=== PATIENT | female | born 1965 | race African-American/Black ===

== ENCOUNTER 2016-08-02 12:43 | Emergency (ER) | payer OTHER ==
--- NOTE | 2016-08-02 13:30 | ER Document Report ---
ED Medical Screen (RME) - General Chief Complaint: Abdominal Pain Stated Complaint: ABDOMINAL PAIN Mode of Arrival: Ambulatory Information source: Patient TRAVEL OUTSIDE OF THE U.S. IN LAST 30 DAYS: No - HPI Onset: Other - 2 DAYS Onset/Duration: Intermittent Quality of pain: Cramping Severity: Mild Associated Symptoms: Nausea. denies: Chills, Fever Exacerbated by: Denies Relieved by: Denies Similar symptoms previously: No Recently seen / treated by doctor: No - Related Data Allergies/Adverse Reactions: Penicillins Allergy (Unknown, Verified 08/02/16 12:52) Past Medical History - General Information source: Patient - Social History Frequency of alcohol use: None - Past Medical History Cardiac Medical History: Reports: Hx Hypercholesterolemia Denies: Hx Coronary Artery Disease Neurological Medical History: Denies: Hx Cerebrovascular Accident Endocrine Medical History: Denies: Hx Diabetes Mellitus Type 1, Hx Diabetes Mellitus Type 2 Renal/ Medical History: Denies: Hx Peritoneal Dialysis GI Medical History: Reports: Hx Gastroesophageal Reflux Disease Musculoskeltal Medical History: Reports Hx Arthritis Psychiatric Medical History: Reports: Hx Depression - anxiety Past Surgical History: Reports: Hx Hysterectomy, Hx Tubal Ligation Review of Systems - Review of Systems Constitutional: No symptoms reported EENT: No symptoms reported Cardiovascular: No symptoms reported Respiratory: No symptoms reported Gastrointestinal: See HPI Physical Exam - Vital signs Vitals: Temp Pulse Resp BP Pulse Ox 98.4 F 78 12 136/88 H 96 08/02/16 12:47 08/02/16 12:47 08/02/16 12:47 08/02/16 12:47 08/02/16 12:47 Interpretation: Normal - General General appearance: Appears well, Alert In distress: None Course - Vital Signs Vital signs: Temp Pulse Resp BP Pulse Ox 98.4 F 78 12 136/88 H 96 08/02/16 12:47 08/02/16 12:47 08/02/16 12:47 08/02/16 12:47 08/02/16 12:47
[2016-08-02 13:38] LABS: ABSOLUTE LYMPHOCYTES (AUTO) 2.7 10^3/uL (0.5-4.7); ABSOLUTE MONOCYTES (AUTO) 0.6 10^3/uL (0.1-1.4); ABSOLUTE NEUT (AUTO) 4.9 10^3/uL (1.7-8.2); BASOPHILS % (AUTO) 0.3 % (0-2); EOSINOPHILS % (AUTO) 0.3 % (0-6); HEMATOCRIT 42.1 % (36.0-47.0); HEMOGLOBIN 14.1 g/dL (12.0-15.5); HGB HCT DIFFERENCE 0.2; LYMPHOCYTES % (AUTO) 32.7 % (13-45); MEAN CORPUSCULAR HEMOGLOBIN 30.4 pg (27.0-33.4); MEAN CORPUSCULAR HGB CONC 33.6 g/dL (32.0-36.0); MEAN CORPUSCULAR VOLUME 91 fl (80-97); MONOCYTES % (AUTO) 7.5 % (3-13); RED BLOOD COUNT 4.64 10^6/uL (3.72-5.28); SEGMENTED NEUTROPHILS % (AUTO) 59.2 % (42-78); WHITE BLOOD COUNT 8.3 10^3/uL (4.0-10.5)
[2016-08-02 14:14] LABS: ALANINE AMINOTRANSFERASE 24 U/L (9-52); ALBUMIN 4.8 g/dL (3.5-5.0); ALKALINE PHOSPHATASE 57 U/L (38-126); ANION GAP 15 (5-19); ASPARTATE AMINO TRANSFERASE 21 U/L (14-36); BILIRUBIN,DIRECT 0.4 mg/dL (0.0-0.4); BILIRUBIN,TOTAL 0.9 mg/dL (0.2-1.3); BLOOD UREA NITROGEN 21 mg/dL (7-20); CALCIUM 10.7 mg/dL (8.4-10.2); CARBON DIOXIDE 31 mmol/L (22-30); CHLORIDE 101 mmol/L (98-107); CREATINE KINASE 85 U/L (30-135); CREATININE RESULT 1.06 mg/dL (0.52-1.25); GLUCOSE 94 mg/dL (75-110); LIPASE 37.3 U/L (23-300); POTASSIUM 4.1 mmol/L (3.6-5.0); SODIUM 146.6 mmol/L (137-145); TOTAL PROTEIN 7.9 g/dL (6.3-8.2)
[2016-08-02 14:25] LABS: CREATINE KINASE MB 0.29 ng/mL (<4.55)
[2016-08-02 14:26] LABS: TROPONIN I < 0.012 ng/mL
[2016-08-02 14:45] LABS: APPEARANCE,URINE TURBID; BILIRUBIN,URINE NEGATIVE (NEGATIVE); GLUCOSE, URINE NEGATIVE (NEGATIVE); KETONES,URINE NEGATIVE (NEGATIVE); LEUKOCYTE ESTERASE,URINE NEGATIVE (NEGATIVE); NITRITE,URINE NEGATIVE (NEGATIVE); PROTEIN,URINE NEGATIVE (NEGATIVE); URINE SPECIFIC GRAVITY 1.027; UROBILINOGEN,URINE NEGATIVE mg/dL (<2.0)
--- NOTE | 2016-08-02 15:38 | ER Document Report ---
ED General - General Chief Complaint: Abdominal Pain Stated Complaint: ABDOMINAL PAIN Mode of Arrival: Ambulatory Information source: Patient Notes: 51-year-old female presents with abdominal pain of 4 day duration. Patient denies any fevers or chills admits to mild nausea Patient notes he was epigastric and has bilateral flanks at this time TRAVEL OUTSIDE OF THE U.S. IN LAST 30 DAYS: No - HPI Onset: Other Onset/Duration: Persistent Quality of pain: Achy Severity: Mild Pain Level: 1 Associated symptoms: Nausea Exacerbated by: Denies Relieved by: Denies Similar symptoms previously: No Recently seen / treated by doctor: No - Related Data Allergies/Adverse Reactions: Penicillins Allergy (Unknown, Verified 08/02/16 12:52) Past Medical History - General Information source: Patient - Social History Smoking Status: Current Every Day Smoker Cigarette use (# per day): Yes Chew tobacco use (# tins/day): No Smoking Education Provided: No Frequency of alcohol use: None Drug Abuse: None Family History: Reviewed & Not Pertinent Patient has suicidal ideation: No Patient has homicidal ideation: No - Past Medical History Cardiac Medical History: Reports: Hx Hypercholesterolemia Denies: Hx Coronary Artery Disease Neurological Medical History: Denies: Hx Cerebrovascular Accident Endocrine Medical History: Denies: Hx Diabetes Mellitus Type 1, Hx Diabetes Mellitus Type 2 Renal/ Medical History: Denies: Hx Peritoneal Dialysis GI Medical History: Reports: Hx Gastroesophageal Reflux Disease Musculoskeltal Medical History: Reports Hx Arthritis Psychiatric Medical History: Reports: Hx Depression - anxiety Past Surgical History: Reports: Hx Hysterectomy, Hx Tubal Ligation - Immunizations Hx Diphtheria, Pertussis, Tetanus Vaccination: No Review of Systems - Review of Systems Notes: REVIEW OF SYSTEMS: CONSTITUTIONAL : Denies fever, chills, or sweats. Denies recent illness. EENT: Denies eye, ear, throat, or mouth pain or symptoms. Denies nasal or sinus congestion or discharge. Denies throat, tongue, or mouth swelling or difficulty swallowing. CARDIOVASCULAR: Denies chest pain. Denies palpitations or racing or irregular heart beat. Denies ankle edema. RESPIRATORY: Denies cough, cold, or chest congestion. Denies shortness of breath, difficulty breathing, or wheezing. GASTROINTESTINAL: Admits to nausea vomiting. GENITOURINARY: Denies difficulty urinating, painful urination, burning, frequency, blood in urine, or discharge. FEMALE GENITOURINARY: Denies vaginal bleeding, heavy or abnormal periods, irregular periods. Denies vaginal discharge or odor. MUSCULOSKELETAL: Denies back or neck pain or stiffness. Denies joint pain or swelling. SKIN: Denies rash, lesions or sores. HEMATOLOGIC : Denies easy bruising or bleeding. LYMPHATIC: Denies swollen, enlarged glands. NEUROLOGICAL: Denies confusion or altered mental status. Denies passing out or loss of consciousness. Denies dizziness or lightheadedness. Denies headache. Denies weakness or paralysis or loss of use of either side. Denies problems with gait or speech. Denies sensory loss, numbness, or tingling. Denies seizures. PSYCHIATRIC: Denies anxiety or stress. Denies depression, suicidal ideation, or homicidal ideation. ALL OTHER SYSTEMS REVIEWED AND NEGATIVE. Dictation was performed using [email or web address] voice recognition software PHYSICAL EXAMINATION: GENERAL: Well-appearing, well-nourished and in no acute distress. HEAD: Atraumatic, normocephalic. EYES: Pupils equal round and reactive to light, extraocular movements intact, conjunctiva are normal. ENT: Nares patent, oropharynx clear without exudates. Moist mucous membranes. NECK: Normal range of motion, supple without lymphadenopathy LUNGS: Breath sounds clear to auscultation bilaterally and equal. No wheezes rales or rhonchi. HEART: Regular rate and rhythm without murmurs ABDOMEN: Soft, mild tenderness epigastric bilateral flanks Female : deferred Musculoskeletal: Normal range of motion, no pitting or edema. No cyanosis. NEUROLOGICAL: Cranial nerves grossly intact. Normal speech, normal gait. Normal sensory, motor exams PSYCH: Normal mood, normal affect. SKIN: Warm, Dry, normal turgor, no rashes or lesions noted. Physical Exam - Vital signs Vitals: Temp Pulse Resp BP Pulse Ox 98.4 F 78 12 136/88 H 96 08/02/16 12:47 08/02/16 12:47 08/02/16 12:47 08/02/16 12:47 08/02/16 12:47 Course - Re-evaluation Re-evalutation: 08/02/16 15:38 Lab work notes no significant abnormality, patient is in no significant distress refuses any pain medication 08/02/16 16:29 CT was performed which noted no acute abnormality, I believe patient stable for discharge she states she believes this is gas related pain After performing a Medical Screening Examination, I estimate there is LOW risk for ACUTE APPENDICITIS, BOWEL OBSTRUCTION, ACUTE CHOLECYSTITIS, PERFORATED DIVERTICULITIS, INCARCERATED HERNIA, PANCREATITIS, PELVIC INFLAMMATORY DISEASE, PERFORATED ULCER, ECTOPIC , or TUBO-OVARIAN ABSCESS, thus I consider the discharge disposition reasonable. Also, there is no evidence or peritonitis , sepsis, or toxicity. I have reevaluated this patient multiple times and no significant life threatening changes are noted. The patient and I have discussed the diagnosis and risks, and we agree with discharging home with close follow-up with the understanding that symptoms and presentations can change. We also discussed returning to the Emergency Department immediately if new or worsening symptoms occur. We have discussed the symptoms which are most concerning (e.g., bloody stool, fever, changing or worsening pain, vomiting) that necessitate immediate return. - Vital Signs Vital signs: Temp Pulse Resp BP Pulse Ox 98.4 F 78 12 136/88 H 96 08/02/16 12:47 08/02/16 12:47 08/02/16 12:47 08/02/16 12:47 08/02/16 12:47 - Laboratory Result Diagrams: 08/02/16 13:20 08/02/16 13:20 Laboratory results interpreted by me: 08/02/16 08/02/16 13:20 13:20 Sodium 146.6 H Carbon Dioxide 31 H BUN 21 H Est GFR (Non-Af Amer) 54 L Calcium 10.7 H Urine Blood SMALL H Discharge - Discharge Clinical Impression: Abdominal pain Qualifiers: Abdominal location: generalized Qualified Code(s): R10.84 - Generalized abdominal pain Condition: Stable Disposition: HOME, SELF-CARE Instructions: Abdominal Pain ([facility]) Additional Instructions: Follow up with your physician tomorrow for further care or return to the ED IMMEDIATELY if symptoms worsen or new concerns occur. If you cannot afford to follow up with your primary care physician a list of low cost clinics have been provided at the end of your discharge papers as well. Prescriptions: Dicyclomine HCl [Bentyl 20 mg Tablet] 20 mg PO QID #40 tablet Simethicone [Gas-X] 125 mg PO Q8 #20 tab.chew
[2016-08-02 17:01] VITALS: BP 132/63
--- NOTE | 2016-08-02 22:54 | EKG REPORT ---
SEVERITY:- OTHERWISE NORMAL ECG - SINUS RHYTHM LEFT AXIS DEVIATION : Confirmed by: Kelsie Brandt 02-Aug-2016 22:53:21
== END 2016-08-02 16:58 | disposition home or self-care (01) ==
LOC: ER 12:43
DX: R10.84 Generalized abdominal pain (principal); F17.210 Nicotine dependence, cigarettes, uncomplicated; E78.00 Pure hypercholesterolemia, unspecified; Z90.710 Acquired absence of both cervix and uterus
CPT/HCPCS: 36415; 76380; 76705; 80053; 81001; 82550; 82553; 83690; 84484; 85025; 93005; 93010; 99284

== ENCOUNTER 2016-08-20 13:50 | Emergency (ER) | payer OTHER ==
--- NOTE | 2016-08-20 15:44 | ER Document Report ---
ED Medical Screen (RME) - General Chief Complaint: Abdominal Pain Stated Complaint: ABDOMINAL PAIN Time Seen by Provider: 08/20/16 15:15 Notes: Is here because she says that she went to the [place] and [place] yesterday and had an ultrasound of her gallbladder that show she has gallstones. She says that she was here in this facility a week or 2 ago and had an ultrasound and told that there were no stones present. She says the pain starts in the epigastrium and goes to the right. She is not having any vomiting, but is having some diarrhea. Has not noted a fever although she has some chills. Patient had a hysterectomy and a tubal ligation. TRAVEL OUTSIDE OF THE U.S. IN LAST 30 DAYS: No - Related Data Allergies/Adverse Reactions: Penicillins Allergy (Unknown, Verified 08/20/16 13:59) Past Medical History - Past Medical History Cardiac Medical History: Reports: Hx Hypercholesterolemia Denies: Hx Coronary Artery Disease Neurological Medical History: Denies: Hx Cerebrovascular Accident Endocrine Medical History: Denies: Hx Diabetes Mellitus Type 1, Hx Diabetes Mellitus Type 2 Renal/ Medical History: Denies: Hx Peritoneal Dialysis GI Medical History: Reports: Hx Gastroesophageal Reflux Disease Musculoskeltal Medical History: Reports Hx Arthritis Psychiatric Medical History: Reports: Hx Depression - anxiety Past Surgical History: Reports: Hx Hysterectomy, Hx Tubal Ligation - Immunizations Hx Diphtheria, Pertussis, Tetanus Vaccination: No Physical Exam - Vital signs Vitals: Temp Pulse Resp BP Pulse Ox 97.8 F 79 18 131/78 H 97 08/20/16 13:59 08/20/16 13:59 08/20/16 13:59 08/20/16 13:59 08/20/16 13:59 Course - Vital Signs Vital signs: Temp Pulse Resp BP Pulse Ox 97.8 F 79 18 131/78 H 97 08/20/16 13:59 08/20/16 13:59 08/20/16 13:59 08/20/16 13:59 08/20/16 13:59
[2016-08-20 15:51] LABS: ABSOLUTE EOSINOPHILS # (AUTO) 0.1 10^3/uL (0.0-0.6); ABSOLUTE LYMPHOCYTES (AUTO) 2.2 10^3/uL (0.5-4.7); ABSOLUTE MONOCYTES (AUTO) 0.5 10^3/uL (0.1-1.4); ABSOLUTE NEUT (AUTO) 3.6 10^3/uL (1.7-8.2); BASOPHILS % (AUTO) 0.5 % (0-2); HEMATOCRIT 43.3 % (36.0-47.0); HEMOGLOBIN 14.4 g/dL (12.0-15.5); HGB HCT DIFFERENCE -0.1; LYMPHOCYTES % (AUTO) 34.8 % (13-45); MEAN CORPUSCULAR HEMOGLOBIN 30.5 pg (27.0-33.4); MEAN CORPUSCULAR HGB CONC 33.2 g/dL (32.0-36.0); MEAN CORPUSCULAR VOLUME 92 fl (80-97); MONOCYTES % (AUTO) 7.4 % (3-13); RED BLOOD COUNT 4.71 10^6/uL (3.72-5.28); RED CELL DISTRIBUTION WIDTH 13.2 % (11.5-14.0); SEGMENTED NEUTROPHILS % (AUTO) 56.3 % (42-78); WHITE BLOOD COUNT 6.3 10^3/uL (4.0-10.5)
[2016-08-20] MEDS ORDERED: ONDANSETRON 4 MG TAB.RAPDIS PO ONE (16:01)
[2016-08-20] MEDS ORDERED: MAG HYDROX/AL HYDROX/SIMETH SUSP 30 ML UDCUP PO ONE (16:01)
[2016-08-20] MEDS ORDERED: LIDOCAINE 2% VISCOUS SOLN 20 ML UDCUP PO ONE (16:01)
[2016-08-20] MEDS ORDERED: SUCRALFATE SUSP 1 GM/10 ML UDCUP PO ONE (16:02)
--- NOTE | 2016-08-20 16:08 | ER Document Report ---
ED General - General Chief Complaint: Abdominal Pain Stated Complaint: ABDOMINAL PAIN Time Seen by Provider: 08/20/16 15:15 Mode of Arrival: Ambulatory TRAVEL OUTSIDE OF THE [place].S. IN LAST 30 DAYS: No - HPI Notes: Patient is a pleasant 51-year-old black female presents emergency department with report of midepigastric predominant pain she has had for greater than a month. The patient reports having nausea in the morning with occasional vomiting, last vomiting was yesterday. The patient reports a slightly loose bowel movement today. She denies any recent medication changes, but reports she has been on naproxen twice a day for over a year. No fever cough or chest pain. Patient has chronic lower back pain states she had a MRI done earlier in the year that showed a herniated disc and an ultrasound yesterday which did show gallstones but did not show ductal dilatation or pericholecystic fluid or other inflammatory changes. Fatty liver was noted. Ultrasound was performed at the [place] in [place]. Past medical history tubal ligation chronic back pain hysterectomy vertigo Medications Gas-X Zofran and Bentyl Antivert omeprazole thyroid replacement and naproxen. - Related Data Allergies/Adverse Reactions: Penicillins Allergy (Unknown, Verified 08/20/16 13:59) Past Medical History - General Information source: Patient - Social History Smoking Status: Never Smoker Frequency of alcohol use: None Drug Abuse: None Lives with: Family Family History: Reviewed & Not Pertinent Patient has suicidal ideation: No Patient has homicidal ideation: No - Past Medical History Cardiac Medical History: Reports: Hx Hypercholesterolemia Denies: Hx Coronary Artery Disease Neurological Medical History: Denies: Hx Cerebrovascular Accident Endocrine Medical History: Denies: Hx Diabetes Mellitus Type 1, Hx Diabetes Mellitus Type 2 Renal/ Medical History: Denies: Hx Peritoneal Dialysis GI Medical History: Reports: Hx Gastroesophageal Reflux Disease Musculoskeltal Medical History: Reports Hx Arthritis Psychiatric Medical History: Reports: Hx Depression - anxiety Past Surgical History: Reports: Hx Hysterectomy, Hx Tubal Ligation - Immunizations Hx Diphtheria, Pertussis, Tetanus Vaccination: No Review of Systems - Review of Systems Notes: REVIEW OF SYSTEMS: CONSTITUTIONAL : Denies fever, chills, or sweats. Denies recent illness. EENT: Denies eye, ear, throat, or mouth pain or symptoms. Denies nasal or sinus congestion or discharge. Denies throat, tongue, or mouth swelling or difficulty swallowing. CARDIOVASCULAR: Denies chest pain. Denies palpitations or racing or irregular heart beat. Denies ankle edema. RESPIRATORY: Denies cough, cold, or chest congestion. Denies shortness of breath, difficulty breathing, or wheezing. GASTROINTESTINAL: Denies distention. Denies blood in vomitus, stools, or per rectum. Denies black, tarry stools. Denies constipation. GENITOURINARY: Denies difficulty urinating, painful urination, burning, frequency, blood in urine, or discharge. FEMALE GENITOURINARY: Denies vaginal bleeding, heavy or abnormal periods, irregular periods. Denies vaginal discharge or odor. MUSCULOSKELETAL: Denies neck pain or stiffness. Denies joint pain or swelling. SKIN: Denies rash, lesions or sores. HEMATOLOGIC : Denies easy bruising or bleeding. LYMPHATIC: Denies swollen, enlarged glands. NEUROLOGICAL: Denies confusion or altered mental status. Denies passing out or loss of consciousness. Denies dizziness or lightheadedness. Denies headache. Denies weakness or paralysis or loss of use of either side. Denies problems with gait or speech. Denies sensory loss, numbness, or tingling. Denies seizures. PSYCHIATRIC: Denies anxiety or stress. Denies depression, suicidal ideation, or homicidal ideation. ALL OTHER SYSTEMS REVIEWED AND NEGATIVE. Dictation was performed using [employer] voice recognition software Physical Exam - Vital signs Vitals: Temp Pulse Resp BP Pulse Ox 97.8 F 79 18 131/78 H 97 08/20/16 13:59 08/20/16 13:59 08/20/16 13:59 08/20/16 13:59 08/20/16 13:59 - Notes Notes: PHYSICAL EXAMINATION: GENERAL: Well-appearing, well-nourished and in no acute distress. HEAD: Atraumatic, normocephalic. EYES: Pupils equal round and reactive to light, extraocular movements intact, conjunctiva are normal. ENT: Nares patent, oropharynx clear without exudates. Moist mucous membranes. NECK: Normal range of motion, supple without lymphadenopathy LUNGS: Breath sounds clear to auscultation bilaterally and equal. No wheezes rales or rhonchi. HEART: Regular rate and rhythm without murmurs ABDOMEN: Soft, nondistended abdomen. No guarding, no rebound. No masses appreciated. Tender through bilateral upper quadrants and midepigastric region. Mildly positive Leonardo's. No obvious hepatosplenomegaly. Female : deferred Musculoskeletal: Normal range of motion, no pitting or edema. No cyanosis. Patient has diffuse paraspinal lower and mid back pain which she states is chronic. There is no crepitance or bony deformity. NEUROLOGICAL: Cranial nerves grossly intact. Normal speech, normal gait. Normal sensory, motor exams. No saddle anesthesia. No report of incontinence. PSYCH: Normal mood, normal affect. SKIN: Warm, Dry, normal turgor, no rashes or lesions noted. Course - Re-evaluation Re-evalutation: 08/20/16 16:09 Patient was given Zofran, Carafate, Maalox and lidocaine by mouth. 08/20/16 17:12 The patient had adequate relief of discomfort after medications and felt stable for discharge. No evidence for acute cholecystitis by lab criteria. No evidence for pancreatitis or GI bleed or urinary tract infection. Findings bit more so with a gastritis and will Have the patient stop the naproxen and will start her on Zofran and Carafate and back on tramadol. - Vital Signs Vital signs: Temp Pulse Resp BP Pulse Ox 97.8 F 79 18 131/78 H 97 08/20/16 13:59 08/20/16 13:59 08/20/16 13:59 08/20/16 13:59 08/20/16 13:59 - Laboratory Result Diagrams: 08/20/16 15:30 08/20/16 15:30 Laboratory results interpreted by me: 08/20/16 08/20/16 15:30 15:30 Carbon Dioxide 31 H BUN 21 H Calcium 10.4 H Direct Bilirubin 0.5 H Urine Urobilinogen 2.0 H Urine Ascorbic Acid 40 H Discharge - Discharge Clinical Impression: Gallstones Gastritis Qualifiers: Gastritis type: unspecified gastritis Chronicity: acute Gastritis bleeding: without bleeding Qualified Code(s): K29.00 - Acute gastritis without bleeding Condition: Stable Disposition: HOME, SELF-CARE Instructions: Gastritis ([facility]), Gallbladder Disease ([facility]) Additional Instructions: Stop taking naproxen. If abdominal pain continues, then you may need an upper endoscopy. If you develop right upper quadrant pain or fever, then return to evaluate the gallbladder further. Prescriptions: Tramadol HCl 50 mg PO Q4HP PRN #30 tablet PRN Reason: Ondansetron [Zofran Odt 4 mg Tablet] 1 tab PO Q8HP PRN #10 tab.rapdis PRN Reason: For Nausea/Vomiting Sucralfate [Carafate 1 gm Tablet] 1 gm PO ACHS #120 tablet
[2016-08-20 16:18] LABS: ALANINE AMINOTRANSFERASE 25 U/L (9-52); ALBUMIN 4.4 g/dL (3.5-5.0); ALKALINE PHOSPHATASE 63 U/L (38-126); ANION GAP 9 (5-19); ASPARTATE AMINO TRANSFERASE 24 U/L (14-36); BILIRUBIN,DIRECT 0.5 mg/dL (0.0-0.4); BILIRUBIN,TOTAL 0.8 mg/dL (0.2-1.3); BLOOD UREA NITROGEN 21 mg/dL (7-20); CALCIUM 10.4 mg/dL (8.4-10.2); CARBON DIOXIDE 31 mmol/L (22-30); CHLORIDE 104 mmol/L (98-107); CREATININE RESULT 0.96 mg/dL (0.52-1.25); GLUCOSE 90 mg/dL (75-110); LIPASE 47.9 U/L (23-300); POTASSIUM 4.5 mmol/L (3.6-5.0); TOTAL PROTEIN 7.4 g/dL (6.3-8.2)
[2016-08-20 16:42] LABS: APPEARANCE,URINE TURBID; BILIRUBIN,URINE NEGATIVE (NEGATIVE); GLUCOSE, URINE NEGATIVE (NEGATIVE); KETONES,URINE NEGATIVE (NEGATIVE); LEUKOCYTE ESTERASE,URINE NEGATIVE (NEGATIVE); NITRITE,URINE NEGATIVE (NEGATIVE); PROTEIN,URINE NEGATIVE (NEGATIVE); URINE SPECIFIC GRAVITY 1.029
[2016-08-20 17:36] VITALS: BP 125/80
== END 2016-08-20 17:30 | disposition home or self-care (01) ==
LOC: ER 13:50
DX: K80.80 Other cholelithiasis without obstruction (principal); K29.00 Acute gastritis without bleeding; K76.0 Fatty (change of) liver, not elsewhere classified; K21.9 Gastro-esophageal reflux disease without esophagitis; R10.13 Epigastric pain; R11.2 Nausea with vomiting, unspecified; R19.4 Change in bowel habit; M54.5 Low back pain; G89.29 Other chronic pain; Z79.899 Other long term (current) drug therapy; Z79.1 Long term (current) use of non-steroidal anti-inflammatories (NSAID); Z88.0 Allergy status to penicillin; Z90.710 Acquired absence of both cervix and uterus
CPT/HCPCS: 99284; 36415; 83690; 85025; 80053; 81001; S0119; J3490

== ENCOUNTER 2016-08-24 11:27 | Observation (INO) | payer OTHER ==
[~2016-08-24 11:27] MED LIST: GLYCOPYRROLATE INJ 0.4 MG/2 ML VIAL ONE; LIDOCAINE 2% INJ-PF (20 MG/ML) 10 ML AMPUL ONE; METOCLOPRAMIDE HCL INJ/PF 10 MG/2 ML SDV ONE; NEOSTIGMINE METHYLSULFATE 10 MG/10 ML VIAL ONE; ONDANSETRON HCL INJ/PF 4 MG/2 ML SDV ONE; ROCURONIUM BROMIDE INJ 50 MG/5 ML VIAL IV ONE; SUCCINYLCHOLINE CHLORIDE INJ 200 MG/10 ML VIAL ONE
--- NOTE | 2016-08-24 11:52 | ER Document Report ---
ED GI/ - General Mode of Arrival: Ambulatory Information source: Patient TRAVEL OUTSIDE OF THE [place].S. IN LAST 30 DAYS: No - HPI Patient complains to provider of: Abdominal pain Onset: Other - July 2016 Timing/Duration: Intermittent, Worse Quality of pain: Burning Location: Epigastric, RUQ Recently seen / treated by doctor: Yes - Multiple ED visits - Gallstones <UYEN FORBES - Last Filed: 08/24/16 12:16> <TJ APONTE - Last Filed: 08/24/16 16:33> - General Chief Complaint: Abdominal Pain Stated Complaint: ABDOMINAL PAIN Time Seen by Provider: 08/24/16 11:40 Notes: Patient is a 51-year-old female presenting to the emergency department chief complaint intermittent abdominal pain onset late July. Patient was seen here at [facility] August 02, [address] and ultrasound performed, gallstones present. Patient was again seen at the [place] on 08/19/2016 where another ultrasound showed that she had gallstones. Patient was subsequently seen here at [facility] 08/[facility]/2016. Today patient states that her pain has worsened. She states that it feels like it is burning all throughout her mid- abdomen. Patient says that her physician at the [facility] will be out of the office until September 01, and then there will be multiple other steps that have to be taken in order for the patient to be scheduled for surgery. (UYEN FORBES) - Related Data Allergies/Adverse Reactions: Penicillins Allergy (Unknown, Verified 08/24/16 12:00) Past Medical History - General Information source: Patient, [facility] Records - Social History Smoking Status: Current Every Day Smoker Cigarette use (# per day): Yes - 10 Family History: Reviewed & Not Pertinent - Past Medical History Cardiac Medical History: Reports: Hx Hypercholesterolemia EENT Medical History: Reports: Other - Glaucoma Endocrine Medical History: Reports: Hx Hypothyroidism - thryoid radiated 1993 GI Medical History: Reports: Hx Gastroesophageal Reflux Disease Musculoskeltal Medical History: Reports Hx Arthritis Psychiatric Medical History: Reports: Hx Depression - anxiety Past Surgical History: Reports: Hx Hysterectomy, Hx Tubal Ligation - Immunizations Hx Diphtheria, Pertussis, Tetanus Vaccination: No <UYEN FORBES - Last Filed: 08/24/16 12:16> Review of Systems - Review of Systems Constitutional: No symptoms reported EENT: No symptoms reported Cardiovascular: No symptoms reported Respiratory: No symptoms reported Gastrointestinal: See HPI, Abdominal pain Genitourinary: No symptoms reported Female Genitourinary: No symptoms reported Musculoskeletal: No symptoms reported Skin: No symptoms reported Hematologic/Lymphatic: No symptoms reported Neurological/Psychological: No symptoms reported -: Yes All other systems reviewed and negative <UYEN FORBES - Last Filed: 08/24/16 12:16> Physical Exam - General General appearance: Alert, Other - Appears uncomfortable - HEENT Head: Normocephalic, Atraumatic Eyes: Normal Pupils: PERRL - Respiratory Respiratory status: No respiratory distress Chest status: Nontender Breath sounds: Normal Chest palpation: Normal - Cardiovascular Rhythm: Regular Heart sounds: Normal auscultation Murmur: No - Abdominal Inspection: Obese - Soft Tenderness: Tender - Epigastric and RUQ tenderness to palpation - Back Back: Normal, Nontender - Extremities General upper extremity: Normal inspection, Nontender. No: Edema General lower extremity: Normal inspection, Nontender. No: Edema - Neurological Neuro grossly intact: Yes Cognition: Normal Orientation: AAOx4 Orange Coma Scale Eye Opening: Spontaneous Orange Coma Scale Verbal: Oriented Chava Coma Scale Motor: Obeys Commands Chava Coma Scale Total: 15 Speech: Normal - Psychological Associated symptoms: Normal affect, Normal mood - Skin Skin Temperature: Warm Skin Moisture: Dry Skin Color: Normal <ALYSIA FORBESICA - Last Filed: 08/24/16 12:16> Course - Laboratory Result Diagrams: 08/24/16 12:50 08/24/16 12:50 - Diagnostic Test Radiology reviewed: Reports reviewed - US shows gallstones, no other acute finding. - EKG Interpretation by [facility] EKG shows normal: Sinus rhythm, [place], Intervals, QRS Complexes, ST-T Waves Rate: Normal - 60 Rhythm: NSR [place]/QRS: Left axis deviation When compared to previous EKG there are: No significant change - Consults Dr. Rueda Time consulted: 15:50 Consulted provider: will come to ER <TJ APONTE - Last Filed: 08/24/16 16:33> - Vital Signs Vital signs: Temp Pulse Resp BP Pulse Ox 98.1 F 80 17 100/53 L 98 08/24/16 11:42 08/24/16 11:42 08/24/16 14:01 08/24/16 14:00 08/24/16 14:01 - Laboratory Laboratory results interpreted by me: 08/24/16 12:50 Est GFR (Non-Af Amer) 59 L Magnesium 2.5 H Discharge <UYEN FORBES - Last Filed: 08/24/16 12:16> - Discharge Admitting Provider: Surgicalist Unit Admitted: OR <TJ APONTE - Last Filed: 08/24/16 16:33> - Discharge Clinical Impression: Esophagitis/gastritis Cholelithiasis Qualifiers: Cholelithiasis location: gallbladder Cholecystitis presence: without cholecystitis Biliary obstruction: without biliary obstruction Qualified Code(s) : K80.20 - Calculus of gallbladder without cholecystitis without obstruction Condition: Stable Disposition: ADMITTED INPATIENT Scribe Attestation: 08/24/16 15:55 I personally performed the services described in the documentation, reviewed and edited the documentation which was dictated to the scribe in my presence, and it accurately records my words and actions. (TJ APONTE) Scribe Documentation - Scribe Written by Williamibe:: Rashid Pearce, 08/24/2016 1152 acting as scribe for :: Jacek <UYEN FORBES - Last Filed: 08/24/16 12:16>
[2016-08-24] MEDS ORDERED: ONDANSETRON HCL INJ/PF 4 MG/2 ML SDV IV ONE ×2 (11:53→15:38)
[2016-08-24] MEDS ORDERED: MAG HYDROX/AL HYDROX/SIMETH SUSP 30 ML UDCUP PO ONE (11:53)
[2016-08-24] MEDS ORDERED: LIDOCAINE 2% VISCOUS SOLN 20 ML UDCUP PO ONE (11:53)
[2016-08-24] MEDS ORDERED: MORPHINE SULFATE 10 MG/ML INJ IV ONE ×2 (11:53→15:38)
[2016-08-24] MEDS ORDERED: NORMAL SALINE 1000 ML 1,000 ML IV ONE (11:53)
[2016-08-24 13:01] LABS: ABSOLUTE EOSINOPHILS # (AUTO) 0.1 10^3/uL (0.0-0.6); ABSOLUTE LYMPHOCYTES (AUTO) 2.4 10^3/uL (0.5-4.7); ABSOLUTE MONOCYTES (AUTO) 0.4 10^3/uL (0.1-1.4); ABSOLUTE NEUT (AUTO) 3.8 10^3/uL (1.7-8.2); BASOPHILS % (AUTO) 0.4 % (0-2); EOSINOPHILS % (AUTO) 1.4 % (0-6); HEMATOCRIT 40.7 % (36.0-47.0); HEMOGLOBIN 13.6 g/dL (12.0-15.5); HGB HCT DIFFERENCE 0.1; LYMPHOCYTES % (AUTO) 35.7 % (13-45); MEAN CORPUSCULAR HEMOGLOBIN 30.9 pg (27.0-33.4); MEAN CORPUSCULAR HGB CONC 33.5 g/dL (32.0-36.0); MEAN CORPUSCULAR VOLUME 92 fl (80-97); MONOCYTES % (AUTO) 5.8 % (3-13); RED BLOOD COUNT 4.42 10^6/uL (3.72-5.28); RED CELL DISTRIBUTION WIDTH 13.6 % (11.5-14.0); SEGMENTED NEUTROPHILS % (AUTO) 56.7 % (42-78); WHITE BLOOD COUNT 6.7 10^3/uL (4.0-10.5)
[2016-08-24 13:01] LABS: APPEARANCE,URINE CLEAR; BILIRUBIN,URINE NEGATIVE (NEGATIVE); GLUCOSE, URINE NEGATIVE (NEGATIVE); KETONES,URINE NEGATIVE (NEGATIVE); LEUKOCYTE ESTERASE,URINE NEGATIVE (NEGATIVE); NITRITE,URINE NEGATIVE (NEGATIVE); PROTEIN,URINE NEGATIVE (NEGATIVE); URINE SPECIFIC GRAVITY 1.019; UROBILINOGEN,URINE NEGATIVE mg/dL (<2.0)
[2016-08-24 13:23] LABS: ALANINE AMINOTRANSFERASE 23 U/L (9-52); ALBUMIN 4.1 g/dL (3.5-5.0); ALKALINE PHOSPHATASE 63 U/L (38-126); ANION GAP 10 (5-19); ASPARTATE AMINO TRANSFERASE 19 U/L (14-36); BILIRUBIN,DIRECT 0.3 mg/dL (0.0-0.4); BILIRUBIN,TOTAL 0.5 mg/dL (0.2-1.3); BLOOD UREA NITROGEN 17 mg/dL (7-20); CALCIUM 10.1 mg/dL (8.4-10.2); CARBON DIOXIDE 29 mmol/L (22-30); CHLORIDE 104 mmol/L (98-107); CREATININE RESULT 0.99 mg/dL (0.52-1.25); GLUCOSE 93 mg/dL (75-110); LIPASE 69.6 U/L (23-300); MAGNESIUM 2.5 mg/dL (1.6-2.3); POTASSIUM 4.3 mmol/L (3.6-5.0); SODIUM 143.3 mmol/L (137-145); TOTAL PROTEIN 6.7 g/dL (6.3-8.2)
--- NOTE | 2016-08-24 13:49 | RADIOLOGY REPORT (SQ) ---
EXAM DESCRIPTION: U/S ABDOMEN LIMITED W/O DOP COMPLETED DATE/TIME: 08/24/2016 1:37 pm REASON FOR STUDY: gallstones, worse pain COMPARISON: 08/02/2016. TECHNIQUE: Dynamic and static grayscale images acquired of the right upper quadrant and recorded on PACS. Additional selected color Doppler and spectral images recorded. LIMITATIONS: Study limited due to acoustical interference from fat or from air in the bowel. FINDINGS: PANCREAS: Pancreas obscured. LIVER: Echotexture is coarse with increased echogenicity consistent with fatty infiltration. No mass es. LIVER VASCULATURE: Normal directional flow of the main portal vein and hepatic veins. GALLBLADDER: Gallstone(s). No pericholecystic fluid. No wall thickening. ULTRASOUND-DETECTED DOMINGUEZ'S SIGN: Negative. INTRAHEPATIC DUCTS AND COMMON DUCT: CBD and intrahepatic ducts normal caliber. No filling defects. INFERIOR VENA CAVA: Normal flow. AORTA: No aneurysm. RIGHT KIDNEY: Normal size. Normal echogenicity. No solid or suspicious masses. Mild prominence of the renal pelvis. No hydronephrosis. No calcifications. PERITONEAL CAVITY AND RIGHT PLEURAL SPACE: No ascites or effusions. OTHER: No other significant finding. IMPRESSION: 1. GALLSTONES. 2. FATTY LIVER. PANCREAS OBSCURED. OTHERWISE UNREMARKABLE RIGHT UPPER QUADRANT ULTRASOUND. TECHNICAL DOCUMENTATION: JOB ID: [id number] [employer]- All Rights Reserved
[2016-08-24] MEDS ORDERED: DEXTROSE 5%-NORMAL SALINE 1,000 ML IV ONE (16:14)
[2016-08-24] MEDS ORDERED: BUPIVACAINE HCL 0.25 % INJ/PF (2.5 MG/1 ML) 30 ML VIAL ONE (16:51)
[2016-08-24] MEDS: DEXTROSE 5%-NORMAL SALINE 1,000 ML IV PRN ×2 (17:03→22:17)
[2016-08-24] MEDS ORDERED: FENTANYL CITRATE INJ/PF 250 MCG/5 ML AMPULE ONE (17:26)
[2016-08-24] MEDS ORDERED: MIDAZOLAM 2 MG/2 ML INJ ONE (17:27)
[2016-08-24] MEDS ORDERED: PROPOFOL INJ 200 MG/20 ML VIAL IV ONE (17:27)
[2016-08-24] MEDS ORDERED: ACETAMINOPHEN 100 ML IV ONE (17:27)
[2016-08-24] MEDS ORDERED: MORPHINE SULFATE 10 MG/ML INJ ONE (17:28)
[2016-08-24] MEDS ORDERED: MORPHINE SULFATE 10 MG/ML INJ IV PRN ×2 (17:36→18:42)
[2016-08-24] MEDS ORDERED: DIPHENHYDRAMINE HCL 50 MG/ML VIAL IV PRN (17:36)
[2016-08-24] MEDS ORDERED: MEPERIDINE HCL/PF INJ 25 MG/1 ML DISP.SYRIN IV PRN (17:36)
[2016-08-24] MEDS ORDERED: PROMETHAZINE HCL INJ 25 MG/1 ML VIAL IV PRN ×2 (17:36)
[2016-08-24] MEDS ORDERED: OXYCODONE-ACETAMINOPHEN 5-325 MG TABLET PO PRN ×2 (17:36)
[2016-08-24] MEDS ORDERED: FENTANYL CITRATE INJ/PF 100 MCG/2 ML AMPUL IV PRN ×3 (17:36)
--- NOTE | 2016-08-24 18:04 | CONSULTATION REPORT E ---
History And Physical admission document NAME: RIMMA RODRIGUEZ : 1965 AGE: 51Y DATE: 08/24/2016 ED16 A TO: IKER ALEXIS M.D. FROM: IKER ALEXIS M.D. Requesting Physician CHIEF COMPLAINT: Abdominal pain. REFERRING PHYSICIAN: The patient is seen at the request of Dr. Brian Read. HISTORY OF PRESENTING ILLNESS: The patient is a 51-year-old -[place] female with a several-month history of abdominal pain, postprandial, right upper quadrant and epigastric in nature. She has been evaluated at [facility] multiple times in the emergency department, [facility], and the [place]. She has had multiple gallbladder ultrasounds at [facility], the [facility], as well as [place] which have revealed cholelithiasis. She has been started on proton pump inhibitors for relief of pain which has been only partially successful. She is now back to the emergency department complaining of worsening pain, nausea, but no vomiting. She had a repeat gallbladder ultrasound which again showed cholelithiasis without radiographic evidence of cholecystitis. Surgery was consulted, and she was advised admission for definitive management. PAST MEDICAL HISTORY: Significant for: 1. Hypothyroidism. 2. PTSD. 3. Depression. 4. Abdominal and extremity swelling. PAST SURGICAL HISTORY: Significant for: 1. Hysterectomy. 2. Tubal ligation. MEDICATIONS: Include: 1. Proton pump inhibitors. 2. Multiple eyedrops. 3. Lactobacillus. 4. Hydrochlorothiazide. 5. Temazepam. 6. Pyridoxine. 7. Magnesium oxide. 8. Lamotrigine. 9. Levothyroxine. 10. Fluconazole. FAMILY HISTORY: Noncontributory. SOCIAL HISTORY: The patient smokes 1/2 pack of cigarettes per day. ALLERGIES: PENICILLIN. REVIEW OF SYSTEMS: CONSTITUTIONAL: The patient denies. CARDIOVASCULAR: The patient denies. GASTROINTESTINAL: As per HPI. MUSCULOSKELETAL: The patient does have chronic back pain; had an MRI scan recently which showed lumbar disk disease. Remainder of review of systems unremarkable. PHYSICAL EXAMINATION: GENERAL: The patient appears to be in mild distress. VITAL SIGNS: Stable; heart rate of 58. EYES: Without icterus. OROPHARYNX: Dentition acceptable. NECK: No adenopathy. Trachea midline. LUNGS: Diminished in the bases bilaterally. HEART: Without murmur or gallop. ABDOMEN: Soft. There is some tenderness in the right upper quadrant with some guarding. There is no organomegaly. There are no other abnormalities to the abdominal wall. EXTREMITIES: Upper and lower extremities without cyanosis, clubbing, edema. PSYCHIATRIC: Alert and oriented x4. SKIN: Normal texture. DIAGNOSTIC DATA: Laboratory profile shows electrolytes within normal limits, magnesium 2.5, CBC within normal limits, urinalysis unremarkable. Gallbladder ultrasound again reveals cholelithiasis, normal common bile duct. IMPRESSION: 1. Symptomatic cholelithiasis with cholecystitis. 2. History of PTSD. 3. Smoker. 4. Hypothyroidism. 5. Depression. RECOMMENDATIONS: Admit to surgicalist service, keep NPO on IV fluids, and plan for interval laparoscopic, possible open cholecystectomy. We discussed the operation as well as management strategies including need to convert to an open procedure. I believe the patient understands the risks, benefits, and alternatives to the offered service and agrees to proceed. DICTATING PHYSICIAN: IKER ALEXIS M.D. [id number] PHY#: [id number] ID: [id number] JOB#: [id number] ACCT: [id number] cc:IKER ALEXIS M.D. > MTDD
[2016-08-24] MEDS ORDERED: CIPROFLOXACIN 400 MG/D5W RTU 400 MG/200 ML RTUPB IV ONE (18:16)
--- NOTE | 2016-08-24 18:44 | EKG REPORT ---
SEVERITY:- OTHERWISE NORMAL ECG - SINUS RHYTHM BORDERLINE LEFT AXIS DEVIATION : Confirmed by: Alton Hartley MD 24-Aug-2016 18:44:36
--- NOTE | 2016-08-24 19:03 | OPERATIVE REPORT E ---
Operative Report NAME: RIMMA RODRIGUEZ : 1965 AGE: 51Y DATE OF SURGERY: 08/24/2016 ROOM: ED16 PREOPERATIVE DIAGNOSIS: Symptomatic cholelithiasis/cholecystitis. POSTOPERATIVE DIAGNOSIS: Symptomatic cholelithiasis/cholecystitis. OPERATION: Laparoscopic cholecystectomy. SURGEON: IKER ALEXIS M.D. ANESTHESIA: General. COMPLICATIONS: None. ESTIMATED BLOOD LOSS: Scant. DRAINS: None. TISSUE REMOVED OR ALTERED: One gallbladder with stones. SUMMARY OF PROCEDURE: The patient was brought from the preop holding area to the main operating room where general anesthesia was induced. Arms were abducted, abdomen exposed, prepped and draped in a sterile fashion. Surgical plan, surgical timeout were conducted. A supraumbilical vertical incision was made with a knife and Veress needle inserted to the peritoneal cavity, and pneumoperitoneum was established. Veress needle was removed, 5 mm port was established, and a 5 mm viewing scope was inserted. Under direct visualization, three additional ports were placed into the peritoneal cavity, one in the subxiphoid and two in the subcostal position. There were intra-abdominal adhesions between the omentum and the midline anterior abdominal wall. We inspected for any evidence of bleeding or injury, and there was none. Gallbladder was grasped at the fundus of the infundibulum and reflected up over the liver bed. The neck of the gallbladder at its junction with the cystic duct was dissected out. Cystic artery and cystic duct were in the classic location. Photographs were taken. [place] of [place] was opened widely, the cystic artery and cystic duct dissected out high distally. Cystic artery was clipped twice proximally, once distally, photographed and divided. Cystic duct was similarly clipped twice proximally, once distally, and then divided with scissors. The gallbladder was removed from the liver bed using the hook cautery dissection. The specimen was brought out of the problem through the supraumbilical port site without spillage of stones or bile. Specimen was sent to Pathology. We returned to the peritoneal cavity and checked for bleeding, there was none. Sponge and needle counts were correct. All ports were removed under direct visualization, pneumoperitoneum evacuated, and wounds closed with #0-Vicryl, 3-0 Vicryl, benzoin, and Steri-Strips. Marcaine 0.25% was placed into the subcutaneous tissue. The patient tolerated the procedure well, extubated, taken to the recovery room in stable condition. DICTATING PHYSICIAN: IKER ALEXIS M.D. [id number] PHY#: [id number] ID: [id number] JOB#: [id number] ACCT: [id number] cc:IKER ALEXIS M.D. >
[2016-08-24] MEDS: CEFAZOLIN 1 GM/D5W RTU 1 GM/50 ML RTUPB IV SCH (21:41)
[2016-08-24] MEDS ORDERED: CEFAZOLIN SODIUM 1 GM in DEXTROSE 5%-WATER 50 ML IV SCH (22:00)
[2016-08-24] MEDS: ONDANSETRON HCL INJ/PF 4 MG/2 ML SDV IV PRN (22:17)
[2016-08-25] MEDS: CEFAZOLIN 1 GM/D5W RTU 1 GM/50 ML RTUPB IV SCH ×3 (05:20→21:57)
[2016-08-25] MEDS: OXYCODONE-ACETAMINOPHEN 5-325 MG TABLET PO PRN ×3 (05:20→18:12)
--- NOTE | 2016-08-25 09:55 | Physician Advisory Note ---
Physician Advisor ProgressNote .: Pursuant to the plan for [facility], I have reviewed the medical record for this patient. Physician Advisor Statement: Please document: 1. cholecystitis - acute, or chronic? 2. Status: If pt isn't felt sufficiently stable clinically for d/c today, please document clinical issues/concerns, potential brewing problems. - Pt w/BP dropping as low as 99/56 this AM, tachypnea at times, .... STatus: appropriate to come in initially as Outpt Obs for symptomatic cholelithiasis w/ cholecystitis. Potential for becoming appropriate for Inpatient status if not clinically able to go home safely today, & reasons are documented. Thanks! CK
[2016-08-25] MEDS: ONDANSETRON HCL INJ/PF 4 MG/2 ML SDV IV PRN (10:56)
[2016-08-26] MEDS: CEFAZOLIN 1 GM/D5W RTU 1 GM/50 ML RTUPB IV SCH (05:25)
[2016-08-26] MEDS: OXYCODONE-ACETAMINOPHEN 5-325 MG TABLET PO PRN (05:26)
[2016-08-26 12:47] VITALS: BP 139/75
--- NOTE | 2016-08-30 21:49 | HISTORY AND PHYSICAL E ---
History and Physical NAME: RIMMA RODRIGUEZ : 1965 AGE: 51Y ADMITTED: 08/24/2016 ROOM: 431 The patient is seen at the request of Dr. parra CHIEF COMPLAINT: Abdominal pain. HISTORY OF PRESENT ILLNESS: The patient is a 51-year-old female brought to the Emergency Department by ground rescue complaining of acute onset of abdominal pain. The patient has a known history of gallstones. She has had multiple evaluations in multiple emergency departments including [place], [place], and [facility]. Gallbladder ultrasonography has shown multiple gallstones. She is seen back in the Emergency Department for the second time in 3 days complaining of pain. Repeat ultrasonography on 08/20/2016 showed gallstones. Surgery was consulted. She was advised admission and definitive intervention. ALLERGIES: PENICILLIN. MEDICATIONS: Thyroid replacement. PAST SURGICAL HISTORY: 1. Hysterectomy. 2. Tubal ligation. PAST MEDICAL HISTORY: 1. Arthritis. 2. Anxiety. 3. GERD. 4. Glaucoma. 5. Hypercholesterolemia. 6. Hypothyroidism. IMMUNIZATIONS: Up to date. SOCIAL HISTORY: The patient does smoke daily. REVIEW OF SYSTEMS: CONSTITUTIONAL: Patient denies. CARDIOVASCULAR: Patient denies. RESPIRATORY: Patient denies. GASTROINTESTINAL: As per HPI. MUSCULOSKELETAL: Patient denies. PHYSICAL EXAMINATION: The patient was examined in the Emergency Department. VITAL SIGNS: Stable. GENERAL: In no acute distress. HEENT: Head and eyes without icterus. PULMONARY: Clear to auscultation bilateral. HEART: Without murmur or gallop. ABDOMEN: Tender in the epigastric area and right upper quadrant with guarding. Scars consistent with previous surgery. UPPER AND LOWER EXTREMITIES: Without cyanosis, clubbing, or edema. PSYCHIATRIC: Patient alert and oriented x4. LABORATORY EVALUATION: CBC and SMA-6 within normal limits. EKG shows sinus rhythm. Liver function studies within normal limits. Repeat gallbladder ultrasound 08/24/2016 shows cholelithiasis, fatty infiltration of the liver. Common bile duct felt to be normal caliber. IMPRESSION: 1. Symptomatic cholelithiasis and cholecystitis. 2. Overweight. 3. Smoker. 4. Hypothyroidism. 5. Hypercholesterolemia. PLAN: 1. Admit to surgical service. Keep n.p.o. on IV fluids and plan for subsequent laparoscopic, possible open, cholecystectomy. 2. We have reviewed the risks, benefits, and alternatives of the planned procedure. I believe she understands and agrees to proceed. DICTATING PHYSICIAN: IKER ALEXIS M.D. [id number] PHY#: [id number] ID: [id number] JOB#: [id number] ACCT: [id number] cc:IKER ALEXIS M.D. > MTDD
--- NOTE | 2016-09-11 21:39 | DISCHARGE SUMMARY E ---
Discharge Summary NAME: RIMMA RODRIGUEZ : 1965 AGE: 51Y ADMITTED: 08/24/2016 DISCHARGED: 08/26/2016 FINAL DIAGNOSES: Cholelithiasis and acute cholecystitis. PROCEDURE DONE: On 08/24/16, a laparoscopic cholecystectomy done by Dr. Rueda. HOSPITAL COURSE: This is a 51-year-old female who underwent laparoscopic cholecystectomy on 08/24/16 for acute calculus cholecystitis. Postoperatively the patient did well and tolerated a regular diet on 08/26/16. She was then discharged on 08/26/16 with the above final diagnosis. The patient to be followed in the Surgical Clinic in about 2 weeks, care of Dr. Rueda. A prescription for Percocet was given on discharge. She was advised not to do any lifting more than 10-15 pounds until seen in the clinic. She can have a regular diet. DICTATING PHYSICIAN: LANDON SCHAEFER M.D. [id number] PHY#: [id number] ID: [id number] JOB#: [id number] ACCT: [id number] cc:Franky SEGOVIA M.D. >
== END 2016-08-26 13:39 | disposition home or self-care (01) ==
LOC: ER 11:27 → EH 17:07 → INTOOBSV 17:07 → 4S 19:53
PROVIDERS: ADMIT Surgery; ATTEND Surgery
PROC: 0FT44ZZ Resection of Gallbladder, Percutaneous Endoscopic Approach (ICD-10-PCS; principal; 2016-08-24 17:30)
DX: K80.10 Calculus of gallbladder with chronic cholecystitis without obstruction (principal); E03.9 Hypothyroidism, unspecified; F32.9 Major depressive disorder, single episode, unspecified; F17.210 Nicotine dependence, cigarettes, uncomplicated; E66.3 Overweight; M53.87 Other specified dorsopathies, lumbosacral region; E78.00 Pure hypercholesterolemia, unspecified; K66.0 Peritoneal adhesions (postprocedural) (postinfection); K76.0 Fatty (change of) liver, not elsewhere classified; Z86.59 Personal history of other mental and behavioral disorders; Z90.710 Acquired absence of both cervix and uterus; Z98.51 Tubal ligation status; Z79.899 Other long term (current) drug therapy; Z68.32 Body mass index [BMI] 32.0-32.9, adult
CPT/HCPCS: 93005; 96376; 99285; 96361; 96374; 96375; 36415; 83690; 83735; 85025; 80053; 81001; 88304 ×2; 76705; 93010; 47562; G0378 ×4; J2250; J0690 ×3; J3490 ×5; J3010; J2765; J2270; J0330; J2405 ×2; J7030; J2704; J0744; J0131; 790

== ENCOUNTER 2019-03-06 11:33 | Day surgery (SDC) | payer OTHER ==
--- NOTE | 2019-02-27 09:22 | RADIOLOGY REPORT (SQ) ---
EXAM DESCRIPTION: CHEST PA/LATERAL COMPLETED DATE/TIME: 02/27/2019 9:11 am REASON FOR STUDY: PRE-OP COMPARISON: 09/22/2015 EXAM PARAMETERS: NUMBER OF VIEWS: two views TECHNIQUE: Digital Frontal and Lateral radiographic views of the chest acquired. RADIATION DOSE: NA LIMITATIONS: none FINDINGS: LUNGS AND PLEURA: No opacities, masses or pneumothorax. No pleural effusion. MEDIASTINUM AND HILAR STRUCTURES: No masses or contour abnormalities. HEART AND VASCULAR STRUCTURES: Heart normal size. No evidence for failure. BONES: No acute findings. HARDWARE: None in the chest. OTHER: No other significant finding. IMPRESSION: NO SIGNIFICANT RADIOGRAPHIC FINDING IN THE CHEST. TECHNICAL DOCUMENTATION: JOB ID: [id number] [employer]- All Rights Reserved Reading location - IP/workstation name: [email or web address]
[2019-02-27 10:13] LABS: HEMATOCRIT 43.1 % (36.0-47.0); HEMOGLOBIN 14.5 g/dL (12.0-15.5); MEAN CORPUSCULAR HEMOGLOBIN 30.3 pg (27.0-33.4); MEAN CORPUSCULAR HGB CONC 33.5 g/dL (32.0-36.0); MEAN CORPUSCULAR VOLUME 91 fl (80-97); PLATELET COUNT 259 10^3/uL (150-450); RED BLOOD COUNT 4.77 10^6/uL (3.72-5.28); RED CELL DISTRIBUTION WIDTH 13.9 % (11.5-14.0); WHITE BLOOD COUNT 5.8 10^3/uL (4.0-10.5)
[2019-02-27 10:18] LABS: APPEARANCE,URINE SLIGHTLY-CLOUDY; BILIRUBIN,URINE NEGATIVE (NEGATIVE); COLOR,URINE YELLOW; GLUCOSE, URINE NEGATIVE (NEGATIVE); KETONES,URINE NEGATIVE (NEGATIVE); LEUKOCYTE ESTERASE,URINE NEGATIVE (NEGATIVE); NITRITE,URINE NEGATIVE (NEGATIVE); PROTEIN,URINE NEGATIVE (NEGATIVE); URINE SPECIFIC GRAVITY 1.027
[2019-02-27 10:41] LABS: ANION GAP 8 (5-19); BLOOD UREA NITROGEN 16 mg/dL (7-20); CALCIUM 9.8 mg/dL (8.4-10.2); CARBON DIOXIDE 31 mmol/L (22-30); CHLORIDE 104 mmol/L (98-107); GLUCOSE 88 mg/dL (75-110); POTASSIUM 4.2 mmol/L (3.6-5.0)
--- NOTE | 2019-02-27 23:54 | EKG REPORT ---
SEVERITY:- BORDERLINE ECG - SINUS RHYTHM BORDERLINE LEFT AXIS DEVIATION BORDERLINE T ABNORMALITIES, INFERIOR LEADS : Confirmed by: Kelsie Brandt 27-Feb-2019 23:53:45
[~2019-03-06 11:33] MED LIST changes: +CLINDAMYCIN 600 MG/D5W RTU 600 MG/50 ML RTUPB IV PRN; +FENTANYL CITRATE INJ/PF 100 MCG/2 ML AMPUL ONE; -GLYCOPYRROLATE INJ 0.4 MG/2 ML VIAL ONE; +KETAMINE HCL INJ 500 MG/10 ML VIAL ONE; +LACTATED RINGERS 1000 ML IV PRN; +LIDOCAINE 0.5% INJ-PF (5 MG/ML) 50 ML SDV SUBCUT PRN; -LIDOCAINE 2% INJ-PF (20 MG/ML) 10 ML AMPUL ONE; -METOCLOPRAMIDE HCL INJ/PF 10 MG/2 ML SDV ONE; +MIDAZOLAM 2 MG/2 ML INJ ONE; -NEOSTIGMINE METHYLSULFATE 10 MG/10 ML VIAL ONE; +PROPOFOL INJ 200 MG/20 ML VIAL IV ONE; -ROCURONIUM BROMIDE INJ 50 MG/5 ML VIAL IV ONE; -SUCCINYLCHOLINE CHLORIDE INJ 200 MG/10 ML VIAL ONE
[2019-03-06] MEDS ORDERED: CLINDAMYCIN 600 MG/D5W RTU 600 MG/50 ML RTUPB IV ONE (11:35)
[2019-03-06] MEDS ORDERED: LIDOCAINE 1%/EPINEPHRINE INJ 20 ML VIAL ONE (13:10)
[2019-03-06] MEDS ORDERED: BUPIVACAINE HCL 0.5 % INJ/PF 30 ML SDV ONE (13:10)
[2019-03-06] MEDS ORDERED: PROMETHAZINE HCL INJ 25 MG/1 ML VIAL IV PRN ×2 (13:54)
[2019-03-06] MEDS ORDERED: MORPHINE SULFATE 10 MG/ML INJ IV PRN (13:54)
[2019-03-06] MEDS ORDERED: FENTANYL CITRATE INJ/PF 100 MCG/2 ML AMPUL IV PRN ×3 (13:54)
[2019-03-06] MEDS ORDERED: DIPHENHYDRAMINE HCL 50 MG/ML VIAL IV PRN (13:54)
[2019-03-06] MEDS ORDERED: MEPERIDINE HCL/PF INJ 25 MG/1 ML DISP.SYRIN IV PRN (13:54)
[2019-03-06] MEDS ORDERED: ONDANSETRON HCL INJ/PF 4 MG/2 ML SDV IV PRN (13:54)
--- NOTE | 2019-03-06 14:08 | Discharge Summary ---
Discharge Summary (SDC) - Discharge Final Diagnosis: Left lateral meniscal tear Date of Surgery: 03/06/19 Discharge Date: 03/06/19 Condition: Good Treatment or Instructions: Ambulation and weightbearing as tolerated basis. You can remove the compressive wrap on Wednesday. Underneath this is a clear plastic dressing they can remain in place until you return to the office. Once the compressive dressing is removed you can shower but please do not immerse it in a bath. Prescriptions: Oxycodone HCl/Acetaminophen [Percocet 5-325 mg Tablet] 1 tab PO Q6 PRN #25 tab PRN Reason: Referrals: [facility] [Primary [facility]] - Discharge Diet: Regular Respiratory Treatments at Home: Deep Breathing/Coughing Discharge Activity: Balance Activity w/Rest, No tub bath Home Care Assistance: None Needed Report the Following to Your Physician Immediately: Shortness of Breath, Fever over 101 Degrees, Drainage-Foul Smelling
--- NOTE | 2019-03-06 14:10 | Operative Report ---
Operative Report DATE OF SURGERY: 03/06/19 PREOPERATIVE DIAGNOSIS: Left lateral meniscal tear POSTOPERATIVE DIAGNOSIS: Left lateral meniscal tear. Grade 2 chondral malacia lateral compartment. Intact ACL. Grade 1 chondral malacia medial compartment. Intact medial meniscus. 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 The knee is insufflated with accommodation Marcaine, Xylocaine, and epinephrine. Subsequently medial lateral infrapatellar portals are created for the introduction of arthroscope and debridements mentation. The joint is examined in systematic fashion findings as above. Using combination of basket Garner, mechanical shaver, electric frequency ablation probe a partial lateral meniscectomy was performed from approximately 6:00 to 12:00 on the face of the dial. Using mechanical shaver cartilaginous fibrillation and delamination is removed from the articular surface the patella. At this point instrumentation was removed. Portals reapproximated interrupted nylon. A sterile compressive dressing was applied. The patient's return to the PACU in satisfactory condition.
[2019-03-06] MEDS: FENTANYL CITRATE INJ/PF 100 MCG/2 ML AMPUL ONE ×2 (14:19→14:24)
[2019-03-06] MEDS ORDERED: OXYCODONE-ACETAMINOPHEN 5-325 MG TABLET ONE (15:06)
[2019-03-06] MEDS ORDERED: OXYCODONE-ACETAMINOPHEN 5-325 MG TABLET PO PRN (15:08)
[2019-03-06 17:32] VITALS: BP 131/74
== END 2019-03-06 16:10 | disposition home or self-care (01) ==
LOC: OROUT 11:33
PROVIDERS: ATTEND Orthopaedic Surgery
DX: M23.301 Other meniscus derangements, unspecified lateral meniscus, left knee (principal); Z79.899 Other long term (current) drug therapy; E78.00 Pure hypercholesterolemia, unspecified; E03.9 Hypothyroidism, unspecified; F17.210 Nicotine dependence, cigarettes, uncomplicated; E78.5 Hyperlipidemia, unspecified; M25.561 Pain in right knee; M25.562 Pain in left knee
CPT/HCPCS: 93005; 36415 ×2; 84132; 85027; 80048; 81001; 71046; 93010; 29880; J2250; J3490 ×2; J3010; J2405; J2704; 1400

== ENCOUNTER 2019-05-08 09:01 | Day surgery (SDC) | payer OTHER ==
[2019-05-03 09:51] LABS: HEMATOCRIT 39.9 % (36.0-47.0); HEMOGLOBIN 13.6 g/dL (12.0-15.5); MEAN CORPUSCULAR HEMOGLOBIN 30.8 pg (27.0-33.4); MEAN CORPUSCULAR HGB CONC 34.1 g/dL (32.0-36.0); MEAN CORPUSCULAR VOLUME 90 fl (80-97); PLATELET COUNT 243 10^3/uL (150-450); RED BLOOD COUNT 4.41 10^6/uL (3.72-5.28); RED CELL DISTRIBUTION WIDTH 13.9 % (11.5-14.0)
[2019-05-03 09:57] LABS: APPEARANCE,URINE SLIGHTLY-CLOUDY; BILIRUBIN,URINE NEGATIVE (NEGATIVE); COLOR,URINE YELLOW; GLUCOSE, URINE NEGATIVE (NEGATIVE); KETONES,URINE NEGATIVE (NEGATIVE); LEUKOCYTE ESTERASE,URINE NEGATIVE (NEGATIVE); NITRITE,URINE NEGATIVE (NEGATIVE); PROTEIN,URINE NEGATIVE (NEGATIVE); URINE SPECIFIC GRAVITY 1.023
[2019-05-03 10:19] LABS: ANION GAP 6 (5-19); BLOOD UREA NITROGEN 14 mg/dL (7-20); CALCIUM 9.6 mg/dL (8.4-10.2); CARBON DIOXIDE 28 mmol/L (22-30); CHLORIDE 107 mmol/L (98-107); GLUCOSE 93 mg/dL (75-110); POTASSIUM 4.3 mmol/L (3.6-5.0)
--- NOTE | 2019-05-03 14:39 | EKG REPORT ---
SEVERITY:- BORDERLINE ECG - SINUS RHYTHM BORDERLINE LEFT AXIS DEVIATION BORDERLINE T ABNORMALITIES, INFERIOR LEADS : Confirmed by: Kelsie Brandt 03-May-2019 14:38:38
[~2019-05-08 09:01] MED LIST changes: +CLINDAMYCIN 600 MG/D5W RTU 0 MG/0 ML RTUPB IV ONE; -FENTANYL CITRATE INJ/PF 100 MCG/2 ML AMPUL ONE; -KETAMINE HCL INJ 500 MG/10 ML VIAL ONE; -MIDAZOLAM 2 MG/2 ML INJ ONE; -ONDANSETRON HCL INJ/PF 4 MG/2 ML SDV ONE; -PROPOFOL INJ 200 MG/20 ML VIAL IV ONE
[2019-05-08] MEDS ORDERED: MIDAZOLAM 2 MG/2 ML INJ ONE (10:26)
[2019-05-08] MEDS ORDERED: FENTANYL CITRATE INJ/PF 100 MCG/2 ML AMPUL ONE (10:26)
[2019-05-08] MEDS ORDERED: PROPOFOL INJ 200 MG/20 ML VIAL IV ONE (10:26)
[2019-05-08] MEDS ORDERED: ONDANSETRON HCL INJ/PF 4 MG/2 ML SDV ONE (10:26)
[2019-05-08] MEDS ORDERED: LIDOCAINE 1%/EPINEPHRINE INJ 20 ML VIAL ONE (10:30)
[2019-05-08] MEDS ORDERED: BUPIVACAINE HCL 0.5 % INJ/PF 30 ML SDV ONE (10:30)
[2019-05-08] MEDS ORDERED: CLINDAMYCIN 600 MG/D5W RTU 600 MG/50 ML RTUPB IV ONE (10:53)
[2019-05-08] MEDS ORDERED: LIDOCAINE 1%/EPINEPHRINE INJ 20 ML VIAL INJ ONE (11:06)
[2019-05-08] MEDS ORDERED: BUPIVACAINE HCL 0.5 % INJ/PF 30 ML SDV INJ ONE (11:06)
[2019-05-08] MEDS ORDERED: DIPHENHYDRAMINE HCL 50 MG/ML VIAL IV PRN (11:16)
[2019-05-08] MEDS ORDERED: PROMETHAZINE HCL INJ 25 MG/1 ML VIAL IV PRN ×2 (11:16)
[2019-05-08] MEDS ORDERED: OXYCODONE-ACETAMINOPHEN 5-325 MG TABLET PO PRN ×2 (11:16)
[2019-05-08] MEDS ORDERED: FENTANYL CITRATE INJ/PF 100 MCG/2 ML AMPUL IV PRN ×3 (11:16)
[2019-05-08] MEDS ORDERED: MEPERIDINE HCL/PF INJ 25 MG/1 ML DISP.SYRIN IV PRN (11:16)
[2019-05-08] MEDS ORDERED: MORPHINE SULFATE 10 MG/ML INJ IV PRN (11:16)
--- NOTE | 2019-05-08 11:29 | Operative Report ---
Operative Report DATE OF SURGERY: 05/08/19 PREOPERATIVE DIAGNOSIS: Right lateral meniscal tear POSTOPERATIVE DIAGNOSIS: Right lateral meniscal tear. Grade I-II chondromalacia lateral compartment. Intact ACL. Grade I chondromalacia the medial compartment. Intact medial meniscus. Grade III chondromalacia of the patellofemoral compartment involving a significant part of the lateral femoral condyle OPERATION: For scopic right partial meniscectomy SURGEON: ALEJANDRO BANEGAS ANESTHESIA: LMAC ESTIMATED BLOOD LOSS: Normal PROCEDURE: With the patient supine on the operating table the right lower extremities prepped and draped in a sterile fashion. The knee is insufflated with combination of Marcaine, Xylocaine, and epinephrine. Subsequently medial lateral patella portals are created for the introduction of arthroscope and debridements mentation. Joint is examined in systematic fashion findings as above. Using combination mechanical shaver and electric frequency ablation probe a partial lateral meniscectomy performed from proximally 6:00 to 12:00 on the face of the dial. The joint is again examined in systematic fashion. No new findings. The instrumentation was removed. The portals closed interrupted nylon. A sterile compressive dressing was applied. The patient is returned to PACU in satisfactory condition.
--- NOTE | 2019-05-08 11:33 | Discharge Summary ---
Discharge Summary (SDC) - Discharge Final Diagnosis: Right lateral meniscal tear Date of Surgery: 05/08/19 Discharge Date: 05/08/19 Condition: Good Treatment or Instructions: Activity as tolerated. You can remove the compressive wrap on Wednesday. Underlying OpSite dressing can be left in place until you return to the office. You can take a shower once the compressive dressing is removed but please do not immerse this in a tub. Prescriptions: Oxycodone HCl/Acetaminophen [Percocet 5-325 mg Tablet] 1 tab PO Q6 PRN #25 tab PRN Reason: Referrals: JUWAN FUENTES DO [Primary Care Provider] - Discharge Diet: Regular Respiratory Treatments at Home: Deep Breathing/Coughing Discharge Activity: Activity As Tolerated, No tub bath Home Care Assistance: None Needed Report the Following to Your Physician Immediately: Shortness of Breath, Fever over 101 Degrees, Drainage-Foul Smelling
[2019-05-08] MEDS ORDERED: OXYCODONE HCL IR 5 MG TABLET PO PRN (12:14)
[2019-05-08] MEDS ORDERED: OXYCODONE HCL IR 5 MG TABLET ONE (12:17)
[2019-05-08 15:44] VITALS: BP 114/63
== END 2019-05-08 13:50 | disposition home or self-care (01) ==
LOC: OROUT 09:01
PROVIDERS: ATTEND Orthopaedic Surgery
DX: M22.41 Chondromalacia patellae, right knee (principal); S83.281D Other tear of lateral meniscus, current injury, right knee, subsequent encounter; X58.XXXD Exposure to other specified factors, subsequent encounter; M25.561 Pain in right knee; Z88.0 Allergy status to penicillin; Z88.8 Allergy status to other drugs, medicaments and biological substances; Z79.899 Other long term (current) drug therapy; E78.00 Pure hypercholesterolemia, unspecified; E03.9 Hypothyroidism, unspecified; F17.210 Nicotine dependence, cigarettes, uncomplicated; E78.5 Hyperlipidemia, unspecified; R60.9 Edema, unspecified; Z91.040 Latex allergy status
CPT/HCPCS: 93005; 36415 ×2; 84132; 85027; 80048; 81001; 93010; 29881; J2250; J3490 ×2; J3010; J2405; J2704

== ENCOUNTER 2019-06-19 13:04 | Emergency (ER) | payer OTHER ==
[2019-06-19 14:12] VITALS: BP 143/70
[2019-06-19] MEDS ORDERED: METOCLOPRAMIDE HCL ORAL SOLN 10 MG/10 ML UDCUP PO ONE (14:28)
[2019-06-19] MEDS ORDERED: MAG HYDROX/AL HYDROX/SIMETH SUSP 30 ML UDCUP PO ONE (14:28)
[2019-06-19] MEDS ORDERED: LIDOCAINE 2% VISCOUS SOLN 15 ML UDCUP PO ONE (14:28)
--- NOTE | 2019-06-19 14:30 | ER Document Report ---
ED Medical Screen (RME) - General Chief Complaint: Abdominal Pain Stated Complaint: NAUSEA VOMITING Time Seen by Provider: 06/19/19 14:25 Primary Care Provider: JUWAN FUENTES DO [Primary Care Provider] - Follow up as needed Mode of Arrival: Ambulatory Information source: Patient Notes: 54-year-old female with history of reflux presents emergency department with complaints of epigastric and right upper quad abdominal pain since Wednesday. Also complains of vomiting. Denies fever and diarrhea. Reports she is taking Zantac without relief of symptoms. She reports she will take something and will come right back up. Patient also reports she has a history of hiatal hernia. I have greeted and performed a rapid initial assessment of this patient. A comprehensive ED assessment and evaluation of the patient, analysis of test results and completion of the medical decision making process will be conducted by additional ED providers. TRAVEL OUTSIDE OF THE [place] IN LAST 30 DAYS: No - Related Data Allergies/Adverse Reactions: Penicillins Allergy (Unknown, Verified 05/08/19 11:26) ANGIOEDEMA adhesive tape Allergy (Verified 05/08/19 11:26) RASH bupropion [From Wellbutrin] Allergy (Verified 05/08/19 11:26) RASH latex Allergy (Verified 05/08/19 11:26) RASH Past Medical History - Social History Frequency of alcohol use: None Drug Abuse: None - Past Medical History Cardiac Medical History: Reports: Hx Hypercholesterolemia Denies: Hx Coronary Artery Disease, Hx Heart Attack, Hx Hypertension Pulmonary Medical History: Denies: Hx Asthma, Hx Bronchitis, Hx COPD, Hx Pneumonia Neurological Medical History: Denies: Hx Cerebrovascular Accident, Hx Seizures Endocrine Medical History: Reports: Hx Hypothyroidism - thryoid radiated 1993. Denies: Hx Diabetes Mellitus Type 1, Hx Diabetes Mellitus Type 2 Renal/ Medical History: Denies: Hx Peritoneal Dialysis GI Medical History: Reports: Hx Gastroesophageal Reflux Disease Musculoskeltal Medical History: Reports Hx Arthritis - GENERALIZED Psychiatric Medical History: Reports: Hx Depression - anxiety Past Surgical History: Reports: Hx Hysterectomy, Hx Tubal Ligation - Immunizations Hx Diphtheria, Pertussis, Tetanus Vaccination: Yes Physical Exam - Vital signs Vitals: Temp Pulse Resp BP Pulse Ox 98.0 F 81 20 143/70 H 95 06/19/19 14:11 06/19/19 14:11 06/19/19 14:11 06/19/19 14:11 06/19/19 14:11 Course - Vital Signs Vital signs: Temp Pulse Resp BP Pulse Ox 98.0 F 81 20 143/70 H 95 06/19/19 14:11 06/19/19 14:11 06/19/19 14:11 06/19/19 14:11 06/19/19 14:11 Doctor's Discharge - Discharge Referrals: JUWAN FUENTES DO [Primary Care Provider] - Follow up as needed
[2019-06-19 15:20] LABS: ABSOLUTE MONOCYTES (AUTO) 0.5 10^3/uL (0.1-1.4); ABSOLUTE NEUT (AUTO) 8.1 10^3/uL (1.7-8.2); BASOPHILS % (AUTO) 0.2 % (0-2); EOSINOPHILS % (AUTO) 0.3 % (0-6); HEMOGLOBIN 14.8 g/dL (12.0-15.5); LYMPHOCYTES % (AUTO) 10.5 % (13-45); MEAN CORPUSCULAR HEMOGLOBIN 30.6 pg (27.0-33.4); MEAN CORPUSCULAR HGB CONC 33.6 g/dL (32.0-36.0); MEAN CORPUSCULAR VOLUME 91 fl (80-97); MONOCYTES % (AUTO) 5.5 % (3-13); PLATELET COUNT 234 10^3/uL (150-450); RED BLOOD COUNT 4.83 10^6/uL (3.72-5.28); RED CELL DISTRIBUTION WIDTH 13.2 % (11.5-14.0); SEGMENTED NEUTROPHILS % (AUTO) 83.5 % (42-78); TOTAL CELLS COUNTED % (AUTO) 100 %; WHITE BLOOD COUNT 9.7 10^3/uL (4.0-10.5)
[2019-06-19 15:41] LABS: ALBUMIN 4.6 g/dL (3.5-5.0); ALKALINE PHOSPHATASE 121 U/L (38-126); ANION GAP 6 (5-19); ASPARTATE AMINO TRANSFERASE 542 U/L (14-36); BILIRUBIN,DIRECT 0.8 mg/dL (0.0-0.4); BILIRUBIN,TOTAL 1.6 mg/dL (0.2-1.3); BLOOD UREA NITROGEN 17 mg/dL (7-20); CALCIUM 10.3 mg/dL (8.4-10.2); CARBON DIOXIDE 32 mmol/L (22-30); CHLORIDE 102 mmol/L (98-107); GLUCOSE 115 mg/dL (75-110); POTASSIUM 4.2 mmol/L (3.6-5.0); TOTAL PROTEIN 7.5 g/dL (6.3-8.2)
--- NOTE | 2019-06-19 16:21 | ER Document Report ---
ED General - General Chief Complaint: Abdominal Pain Stated Complaint: NAUSEA VOMITING Time Seen by Provider: 06/19/19 14:25 Primary Care Provider: JUWAN FUENTES DO [Primary Care Provider] - Follow up as needed Mode of Arrival: Ambulatory Notes: Patient is a 54-year-old -Stateless female with a past medical history of prior cholecystectomy who presents to the emergency department with a chief complaint of upper abdominal pain that began 2 days ago. States it is a sharp pain that radiates around both upper quadrants to her back. States is worse with oral intake. Associated with nausea and vomiting. Denies any fever chills night sweats or diarrhea. No chest pain or shortness of breath. TRAVEL OUTSIDE OF THE [place] IN LAST 30 DAYS: No - Related Data Allergies/Adverse Reactions: Penicillins Allergy (Unknown, Verified 05/08/19 11:26) ANGIOEDEMA adhesive tape Allergy (Verified 05/08/19 11:26) RASH bupropion [From Wellbutrin] Allergy (Verified 05/08/19 11:26) RASH latex Allergy (Verified 05/08/19 11:26) RASH Past Medical History - General Information source: Patient - Social History Smoking Status: Current Every Day Smoker Frequency of alcohol use: None Drug Abuse: None Family History: Reviewed & Not Pertinent Patient has suicidal ideation: No Patient has homicidal ideation: No - Past Medical History Cardiac Medical History: Reports: Hx Hypercholesterolemia Denies: Hx Coronary Artery Disease, Hx Heart Attack, Hx Hypertension Pulmonary Medical History: Denies: Hx Asthma, Hx Bronchitis, Hx COPD, Hx Pneumonia Neurological Medical History: Denies: Hx Cerebrovascular Accident, Hx Seizures Endocrine Medical History: Reports: Hx Hypothyroidism - thryoid radiated 1993. Denies: Hx Diabetes Mellitus Type 1, Hx Diabetes Mellitus Type 2 Renal/ Medical History: Denies: Hx Peritoneal Dialysis GI Medical History: Reports: Hx Gastroesophageal Reflux Disease Musculoskeletal Medical History: Reports Hx Arthritis - GENERALIZED Psychiatric Medical History: Reports: Hx Depression - anxiety Past Surgical History: Reports: Hx Hysterectomy, Hx Tubal Ligation - Immunizations Hx Diphtheria, Pertussis, Tetanus Vaccination: Yes Review of Systems - Review of Systems Gastrointestinal: Abdominal pain, Nausea, Vomiting -: Yes All other systems reviewed and negative Physical Exam - Vital signs Vitals: Temp Pulse Resp BP Pulse Ox 98.0 F 81 20 143/70 H 95 06/19/19 14:11 06/19/19 14:11 06/19/19 14:11 06/19/19 14:11 06/19/19 14:11 - General General appearance: Appears well, Alert In distress: None - HEENT Head: Normocephalic, Atraumatic Eyes: Normal Pupils: PERRL Nasal: Normal Mouth/Lips: Normal Mucous membranes: Normal, Moist Pharynx: Normal Neck: Normal - Respiratory Respiratory status: No respiratory distress Chest status: Nontender Breath sounds: Normal Chest palpation: Normal - Cardiovascular Rhythm: Regular Heart sounds: Normal auscultation - Abdominal Inspection: Normal Distension: No distension Bowel sounds: Normal Tenderness: Other - Diffuse tenderness to palpation in all quadrants, worse in the right upper and left upper quadrant - Neurological Neuro grossly intact: Yes Cognition: Normal Orientation: AAOx4 [place] Coma Scale Eye Opening: Spontaneous [place] Coma Scale Verbal: Oriented [place] Coma Scale Motor: Obeys Commands [place] Coma Scale Total: 15 Speech: Normal - Psychological Associated symptoms: Normal affect, Normal mood - Skin Skin Temperature: Warm Skin Moisture: Dry Skin Color: Normal Course - Re-evaluation Re-evalutation: 06/19/19 17:48 Ultrasound unremarkable per radiologist. Patient's lab work revealing a transaminitis. We will send an acute hepatitis panel she will call her doctor at the [facility] for follow-up and reevaluation. Will send home with a short course of pain medications and Zofran. Counseled her at length regarding the importance of outpatient follow-up and advised she return here or any ER immediately with any new, persistent or worsening symptoms. She verbalized understood and agreed. - Vital Signs Vital signs: Temp Pulse Resp BP Pulse Ox 98.0 F 81 20 143/70 H 95 06/19/19 14:11 06/19/19 14:11 06/19/19 14:11 06/19/19 14:11 06/19/19 14:11 - Laboratory Result Diagrams: 06/19/19 15:04 06/19/19 15:04 Laboratory results interpreted by me: 06/19/19 06/19/19 06/19/19 15:04 15:04 16:29 Lymph % (Auto) 10.5 L Seg Neutrophils % 83.5 H Carbon Dioxide 32 H Est GFR (MDRD) Non-Af 58 L Glucose 115 H Calcium 10.3 H Total Bilirubin 1.6 H Direct Bilirubin 0.8 H AST 542 H ALT 255 H Urine Protein 30 H Urine Ketones TRACE H Urine Blood SMALL H Urine Urobilinogen 4.0 H Discharge - Discharge Clinical Impression: Transaminitis Abdominal pain Qualifiers: Abdominal location: generalized Qualified Code(s): R10.84 - Generalized abdominal pain Condition: Stable Disposition: HOME, SELF-CARE Instructions: Abdominal Pain ([facility]) Additional Instructions: Follow-up with your regular doctor in 2 to 3 days for reevaluation. Return here or any ER immediately with any new, persistent or worsening symptoms. Prescriptions: Ketorolac Tromethamine [Toradol 10 mg Tablet] 10 mg PO Q8HP PRN #30 tablet PRN Reason: Dicyclomine HCl [Bentyl 20 mg Tablet] 20 mg PO QID PRN #20 tablet PRN Reason: Ondansetron [Zofran Odt 4 mg Tablet] 4 mg PO Q8 PRN #20 tab.rapdis PRN Reason: Referrals: JUWAN FUENTES DO [Primary Care Provider] - Follow up as needed
--- NOTE | 2019-06-19 17:02 | RADIOLOGY REPORT (SQ) ---
EXAM DESCRIPTION: U/S ABDOMEN LIMITED W/O DOP COMPLETED DATE/TIME: 06/19/2019 4:53 pm REASON FOR STUDY: RUQ EPIGASTRIC PAIN COMPARISON: None. TECHNIQUE: Dynamic and static grayscale images acquired of the abdomen and recorded on PACS. Additio nal selected color Doppler and spectral images recorded. LIMITATIONS: None. FINDINGS: PANCREAS: Visualized portion of the pancreas are normal in appearance. LIVER: No masses. Echotexture normal. LIVER VASCULATURE: Normal directional flow of the main portal vein and hepatic veins. GALLBLADDER: Surgically absent. ULTRASOUND-DETECTED DOMINGUEZ'S SIGN: Negative. INTRAHEPATIC DUCTS AND COMMON DUCT: CBD and intrahepatic ducts normal caliber. No filling defects. AORTA: No aneurysm. RIGHT KIDNEY: Normal size. Normal echogenicity. No solid or suspicious masses. No hydronephrosis. No calcifications. PERITONEAL AND RIGHT PLEURAL SPACE: No ascites or effusions. OTHER: No other significant findings. IMPRESSION: Prior cholecystectomy. No acute findings. TECHNICAL DOCUMENTATION: JOB ID: [id number] 2010 [employer]- All Rights Reserved Reading location - IP/workstation name: [email or web address]
[2019-06-19 17:11] LABS: APPEARANCE,URINE SLIGHTLY-CLOUDY; BILIRUBIN,URINE NEGATIVE (NEGATIVE); COLOR,URINE AMBER; GLUCOSE, URINE NEGATIVE (NEGATIVE); KETONES,URINE TRACE mg/dL (NEGATIVE); LEUKOCYTE ESTERASE,URINE NEGATIVE (NEGATIVE); NITRITE,URINE NEGATIVE (NEGATIVE); PROTEIN,URINE 30 mg/dL (NEGATIVE); URINE SPECIFIC GRAVITY 1.028
--- NOTE | 2019-06-19 21:47 | EKG REPORT ---
SEVERITY:- OTHERWISE NORMAL ECG - SINUS RHYTHM BORDERLINE LEFT AXIS DEVIATION : Confirmed by: Yesenia Dennis MD 19-Jun-2019 21:47:12
[2019-06-21 10:36] LABS: HEPATITS B SURFACE ANTIGEN Negative (Negative)
[2019-06-21 10:46] LABS: HEPATITIS C VIRUS ANTIBODY <0.1 s/co ratio (0.0-0.9)
== END 2019-06-19 18:44 | disposition home or self-care (01) ==
LOC: ER 13:04
DX: R74.0 Nonspecific elevation of levels of transaminase and lactic acid dehydrogenase [LDH] (principal); R10.84 Generalized abdominal pain; R11.2 Nausea with vomiting, unspecified; R10.11 Right upper quadrant pain; R10.12 Left upper quadrant pain; M54.9 Dorsalgia, unspecified; Z90.49 Acquired absence of other specified parts of digestive tract; Z88.0 Allergy status to penicillin; Z88.8 Allergy status to other drugs, medicaments and biological substances; F17.200 Nicotine dependence, unspecified, uncomplicated
CPT/HCPCS: 93005; 99284; 36415; 83690; 85025; 80053; 81001; 84484; 80074; 76705; 93010; J3490